=== PATIENT | female | born 1980 | race African-American/Black ===

== ENCOUNTER 2024-11-21 17:03 | Emergency (ER) | payer MEDICAID, OTHER ==
[~2024-11-21] VITALS: Ht 172.7 cm; Wt 111.0 kg
[2024-11-21 17:16] VITALS: BP 162/106; PULSE 116; RESP 18; TEMP 36.6; O2SAT 99
[2024-11-21] MEDS ORDERED: IBUP-2029 MT (19:47)
[2024-11-21] MEDS: KETOROLAC 15MG/ML VIAL IM ONE (20:10)
== END 2024-11-21 21:21 | disposition home or self-care (01) ==
LOC: ER 17:03
DX: S83.002A Unspecified subluxation of left patella, initial encounter (principal); X58.XXXA Exposure to other specified factors, initial encounter; Y93.89 Activity, other specified; Y92.89 Other specified places as the place of occurrence of the external cause; Y99.8 Other external cause status
CPT/HCPCS: 99283; 29505; 73562; 96372; J1885